=== PATIENT | female | born 1950 | race African-American/Black ===

== ENCOUNTER 2016-09-29 11:22 | Emergency (ER) | payer BC ==
--- NOTE | ~2016-09-29 | EKG ---
PATIENT: SONG ARGUELLO UNIT #: [id number] Ventricular Rate: 95 BPM Atrial Rate: 95 BPM P-R Interval: 130 ms QRS Duration: 118 ms Q-T Interval: 386 ms QTC Calculation(Bezet): 485 ms P [place]: 56 degrees Calculated R [place]: 31 degrees Calculated T [place]: 17 degrees Diagnosis Line: Normal sinus rhythm Diagnosis Line: Right bundle branch block Diagnosis Line: Cannot rule out Inferior infarct (cited on or Diagnosis Line: before 29-SEP-2016) Diagnosis Line: Abnormal ECG Diagnosis Line: When compared with ECG of 29-SEP-2016 11:03, Diagnosis Line: (unconfirmed) Diagnosis Line: Vent. rate has decreased BY 79 BPM Normal sinus Diagnosis Line: rhythm has replaced Supraventricular tachycardia Diagnosis Line: ST no longer depressed in Lateral leads Diagnosis Line: Confirmed by MOISES LARSEN MD ([id number]) on 09/30/2016 Diagnosis Line: 7:13:05 PM INTERPRETING MD: CHAVA DACOSTA
--- NOTE | ~2016-09-29 | CR63 ---
[facility] A Service [facility] RADIOLOGY TEXT RESULTS PATIENT: SONG ARGUELLO LOCATION: [place] : 52 UNIT #: [id number] AGE: [address]: Korey Aguirre DO SEX: F ORDER DR: [id number] [facility] [address] [place], [place] [address] [id number] E MR#: [id number] Acc #: [id number] NAME: SONG ARGUELLO : 1950 SEX: F STUDY DATE/TIME: 09/29/2016 12:57 UNIT: [place] ROOM: STUDY DESCRIPTION: CR Chest 2 View Attending Physician: Korey Aguirre D.O. Ordering Physician: Korey Aguirre D.O. Primary Care Physician: Constantine Al M.D. MEDICAL IMAGING REPORT This report is preliminary unless electronic signature is present EXAM PA and lateral chest DATE: 09/29/2016 at 12:57 HISTORY 65-year-old female with shortness breath, increased heart rate and palpitations today. HISTORY Supraventricular tachycardia. COMPARISON AP portable chest 09/29/2016 FINDINGS Transcutaneous pacer pad projects over the right hemithorax. No acute airspace disease is seen. Heart size is within normal limits. No pleural effusion or pneumothorax is identified. IMPRESSION 1. No acute cardiopulmonary findings. Dictated by... Diana Rascon M.D. THIS IS AN ELECTRONICALLY VERIFIED REPORT Diana Rascon M.D. at 09/30/2016 8:[address] [facility]/timoteo TD: 09/29/2016 15:16 JOB #: [id number] [facility] A Service [facility] RADIOLOGY TEXT RESULTS PATIENT: SONG ARGUELLO LOCATION: [facility] : [birth year] UNIT #: [id number] AGE: [address]: Korey Aguirre DO SEX: F ORDER DR: MEDICAL IMAGING REPORT Page 1 of 1 COPY
--- NOTE | ~2016-09-29 | CR72 ---
[facility] A Service [facility] RADIOLOGY TEXT RESULTS PATIENT: SONG ARGUELLO LOCATION: [place] : [birth year] UNIT #: [id number] AGE: [address]: Korey Aguirre DO SEX: F ORDER DR: [id number] [facility] [address] [place], [place] [address] [id number] E MR#: [id number] Acc #: [id number] NAME: SONG ARGUELLO : 1950 SEX: F STUDY DATE/TIME: 09/29/2016 11:15 UNIT: [place] ROOM: STUDY DESCRIPTION: CR Chest Single View Portable Attending Physician: Korey Aguirre D.O. Ordering Physician: Korey Aguirre D.O. Primary Care Physician: Constantine Al M.D. MEDICAL IMAGING REPORT This report is preliminary unless electronic signature is present EXAM Portable chest HISTORY Palpitations, onset today. COMPARISON 04/29/2016 TECHNIQUE Single view of the chest was obtained. FINDINGS The heart and mediastinum are stable with a normal configuration. The aorta is mildly ectatic. Both lungs are clear. Vascular markings are a little more prominent than on the previous examination suggesting mild congestive heart failure or fluid overload. No focal infiltrates are seen and no effusions are noted. IMPRESSION Slight increase in pulmonary vascularity since the previous examination. Probable mild congestive heart failure versus fluid overload. Dictated by... Romeo Wiggins M.D. THIS IS AN ELECTRONICALLY VERIFIED REPORT Romeo Wiggins M.D. at 09/29/2016 3:48 PM [facility]/nayana TD: 09/29/2016 13:07 JOB #: [id number] [facility] A Service [facility] RADIOLOGY TEXT RESULTS PATIENT: SONG ARGUELLO LOCATION: [facility] : 52 UNIT #: [id number] AGE: [address]: Hottman,Korey M DO SEX: F ORDER DR: MEDICAL IMAGING REPORT Page 1 of 1 COPY
--- NOTE | ~2016-09-29 | EKG ---
PATIENT: SONG ARGUELLO UNIT #: [id number] Ventricular Rate: 174 BPM Atrial Rate: 174 BPM QRS Duration: 110 ms Q-T Interval: 246 ms QTC Calculation(Bezet): 418 ms Calculated R [place]: 98 degrees Calculated T [place]: 11 degrees Diagnosis Line: Supraventricular tachycardia Diagnosis Line: Indeterminate axis Diagnosis Line: Right bundle branch block Diagnosis Line: Cannot rule out Inferior infarct , age Diagnosis Line: undetermined Diagnosis Line: Abnormal ECG Diagnosis Line: When compared with ECG of 06-FEB-2015 15:05, Diagnosis Line: Significant changes have occurred Diagnosis Line: Confirmed by MOISES LARSEN MD ([id number]) on 09/30/2016 Diagnosis Line: 7:12:24 PM INTERPRETING MD: CHAVA DACOSTA
[~2016-09-29 11:22] MED LIST: AMOXICILLIN500 M1 PO; ANTIVERT PO; HYDROCODONE-APA1 T42 PO; LEVAQUIN PO; PROTONIX PO; SIMVASTATIN40 MG PO; WELLBUTRIN SR PO; ZOCOR PO
[2016-09-29 11:25] LABS: BASOPHIL# 0.2 X10e3 (0-0.3); DIFF IND YES; EOSINOPHIL# 0.3 X10e3 (0-0.7); EOSINOPHIL% 1.8 % (0.0-7.0); HEMATOCRIT 43.1 % (35.0-45.0); HEMOGLOBIN 13.3 gm/dL (12.0-16.0); LYMPHOCYTE# 4.3 X10e3 (1.0-3.5); LYMPHOCYTE% 27.6 % (17.0-45.0); MEAN CELL VOLUME 72.6 FL (83-96); MEAN CORPUSCULAR HEMOGLOBIN 22.5 PG (28-34); MEAN PLATELET VOLUME 9.5 FL (6.5-11.5); MONOCYTE# 0.9 X10e3 (0-1.0); MONOCYTE% 5.9 % (3.0-12.0); NEUTROPHIL# 9.9 X10e3 (1.5-7.1); NEUTROPHIL% 63.7 % (40-75); PLATELET COUNT 328 X10e3 (140-420); RED BLOOD COUNT 5.93 X10e (3.90-5.30); RED CELL DISTRIBUTION WIDTH 14.3 % (11.0-15.5); WHITE BLOOD COUNT 15.5 X10e3 (4.0-10.5)
[2016-09-29 11:37] LABS: PARTIAL THROMBOPLASTIN TIME 33.8 SECONDS (23.5-31.3); PROTHROMBIN TIME (PATIENT) 10.4 SECONDS (9.6-11.5)
[2016-09-29 11:58] LABS: ANISOCYTOSIS SL; PLATELET ESTIMATE NORMAL (NORMAL); RBC NORMAL YES
[2016-09-29 12:06] LABS: URINE SOURCE CLEAN CATCH
[2016-09-29 12:10] LABS: URINE APPEARANCE CLEAR; URINE BILIRUBIN NEG (NEG); URINE BLOOD NEG (NEG); URINE COLOR YELLOW; URINE GLUCOSE NEG (NEG); URINE KETONE NEG (NEG); URINE LEUKOCYTE ESTERASE NEG (NEG); URINE NITRATE NEG (NEG); URINE PROTEIN NEG (NEG); URINE UROBILINOGEN 0.2 MG/DL (NEG)
[2016-09-29 12:14] LABS: BILIRUBIN, DIRECT 0.1 mg/dL (0.0-0.2); BILIRUBIN,INDIRECT 0.5 mg/dL (0.0-0.9); BILIRUBIN,TOTAL 0.6 mg/dL (0.2-2.0); BUN/CREATININE RATIO 11.11; CALCIUM SERUM 9.2 mg/dL (8.4-10.2); CREATININE SERUM 0.9 mg/dL (0.6-1.4); GLOM FILT RATE Estimated 78.4 mL/min (>60); MAGNESIUM 1.8 mg/dL (1.6-3.0); POTASSIUM 4.6 mmol/L (3.5-5.1); PROTEIN TOTAL SERUM 7.7 g/dL (6.0-8.3)
[2016-09-29 12:14] LABS: CULTURE INDICATED? NO
[2016-09-29 14:37] LABS: %MB 1.4 % (0.0-4.0); MB 1.1 ng/ml
[2016-09-29 15:51] LABS: %MB 1.9 % (0.0-4.0); MB 1.5 ng/ml
== END 2016-09-29 16:14 | disposition home or self-care (01) ==
LOC: CED 11:22
PROVIDERS: Emergency Medicine
DX: I47.1 Supraventricular tachycardia (principal)
CPT/HCPCS: 36415; 71010; 71020; 80048; 80076; 81003; 82550; 82553; 83735; 83880; 84443; 84484; 85025; 85610; 85730; 93005; 96374; 99284; J0153